=== PATIENT | male | born 1960 | race Caucasian/White ===

== ENCOUNTER 2018-03-03 00:13 | Emergency (ER) | payer OTHER ==
[~2018-03-03] VITALS: Ht 190.5 cm; Wt 96.7 kg
[~2018-03-03 00:13] MED LIST: GLUCOPHAGE XR750 MG PO; LOSARTAN-HCTZ1 EAC2 PO; NAPROSYN500 MG PO; SIMVASTATIN40 MG PO
[2018-03-03 00:33] VITALS: BP 146/80
== END 2018-03-03 03:40 | disposition home or self-care (01) ==
LOC: EME 00:13
DX: S99.921A Unspecified injury of right foot, initial encounter (principal); W23.0XXA Caught, crushed, jammed, or pinched between moving objects, initial encounter; Y99.0 Civilian activity done for income or pay; E11.9 Type 2 diabetes mellitus without complications; Z79.84 Long term (current) use of oral hypoglycemic drugs; E78.5 Hyperlipidemia, unspecified; I10 Essential (primary) hypertension; F17.200 Nicotine dependence, unspecified, uncomplicated
CPT/HCPCS: 73630; 99281; 99283